=== PATIENT | male | born 1950 | race Caucasian/White ===

== ENCOUNTER 2017-02-02 23:33 | Observation (INO) | payer OTHER, BC ==
[~2017-02-02] VITALS: Ht 172.7 cm; Wt 66.5 kg
[~2017-02-02 23:33] MED LIST: ASPIRIN325 MG PO; LOPRESSOR25 MG PO
[2017-02-03 00:15] LABS: HEMATOCRIT 45.9 % (38.0-50.0); MCH 31.8 PG (29.0-34.0); MCV 93.7 FL (86-99); MEAN PLAT.VOLUME 9.8 uM^3 (9.0-12.4); PLATELET COUNT 284 K/uL (156-360); RBC DIS.WIDTH-CV 13.1 % (11.8-14.6); RBC DIS.WIDTH-SD 45.1 % (39-53)
[2017-02-03 00:24] LABS: CHLORIDE 106 mEq/L (99-109); POTASSIUM 3.5 mEq/L (3.7-5.4); SODIUM 141 mEq/L (136-147)
[2017-02-03 00:25] LABS: MAGNESIUM 2.3 mg/dL (1.3-2.7)
[2017-02-03 00:26] LABS: GLUCOSE 133 mg/dL (70-99)
[2017-02-03 00:28] LABS: ANION GAP 15 MEQ/L (2-14)
[2017-02-03 00:30] LABS: GFR ESTIMATE (CALCULATED) > 59 mL/min/
[2017-02-03 00:31] LABS: UREA NITROGEN (BUN) 15 mg/dL (9-23)
[2017-02-03 00:36] LABS: TROP-I INTERPRETATION NEGATIVE; TROPONIN-I < 0.01 ng/mL (0.0-0.30)
[2017-02-03 00:50] LABS: PROTHROMBIN TIME 10.3 (9.2-11.2); PTT 27.8 (25-32)
[2017-02-03 08:55] LABS: TROP-I INTERPRETATION NEGATIVE; TROPONIN-I < 0.01 ng/mL (0.0-0.30)
[2017-02-03] MEDS ORDERED: XARELTO1 EACH PO (13:52)
[2017-02-03 14:26] LABS: TROP-I INTERPRETATION NEGATIVE; TROPONIN-I < 0.01 ng/mL (0.0-0.30)
[2017-02-03] MEDS ORDERED: XARELTO20 MG PO ×2 (14:55→15:31)
[2017-02-03 15:40] VITALS: BP 99/64
== END 2017-02-03 15:44 | disposition home or self-care (01) ==
LOC: EME 23:33 → EDOF 02-03 07:33
PROVIDERS: Nurse Practitioner Adult Health
PROC: 5A2204Z Restoration of Cardiac Rhythm, Single (ICD-10-PCS; principal; 2017-02-03)
DX: I48.0 Paroxysmal atrial fibrillation (principal); E87.6 Hypokalemia; I95.9 Hypotension, unspecified; F10.10 Alcohol abuse, uncomplicated
CPT/HCPCS: 71020; 80048; 83735; 84100; 84484; 85027; 85610; 85730; 93005; 99281; 99284; G0378; J1644; J7030